=== PATIENT | female | born 1970 | race Two or more races ===

== ENCOUNTER 2018-07-26 13:14 | Outpatient (CLI) | payer MEDICAID ==
[~2018-07-26] VITALS: Ht 162.6 cm; Wt 58.5 kg
[2018-07-26 13:20] VITALS: BP 111/60
--- NOTE | 2018-07-26 18:00 | Consultation ---
DATE OF CONSULTATION: 07/25/2018 CONSULTING PHYSICIAN: Vinnie Yen M.D. REASON FOR CONSULTATION: Referral for colonoscopy. HISTORY OF PRESENT ILLNESS: This is a 48-year-old female with past medical history of colon cancer diagnosed in 2016, status post surgery, who is here for followup for colonoscopy. PAST MEDICAL HISTORY: Colon cancer. PAST SURGICAL HISTORY: Hemicolectomy. ALLERGIES: To penicillin, sulfa, Cipro, morphine. MEDICATIONS: Please see medication reconciliation list. FAMILY HISTORY: Noncontributory. SOCIAL HISTORY: No tobacco, alcohol, or IV drug abuse. PHYSICAL EXAMINATION: VITAL SIGNS: Temperature 98.1, blood pressure 111/60, pulse 70, respirations 20. HEENT: Normocephalic and atraumatic. Sclerae anicteric. NECK: Supple. No evidence of lymphadenopathy. CARDIOVASCULAR: Regular rhythm. Plus S1 and S2. No obvious murmur. LUNGS: Clear to auscultation bilaterally. ABDOMEN: Positive bowel sounds. Soft and nontender. No rebound. No guarding. No peritoneal sign. EXTREMITIES: No cyanosis, no clubbing, no edema. ASSESSMENT AND PLAN: This is a 48-year-old female with history of colon cancer, status post resection two years ago, needs a followup colonoscopy. Plan to do it when authorization is obtained. The patient was given the instruction and preparation for colonoscopy today. Vinnie Yen M.D. DR: BALDO JOB#: [id number] CC:
== END 2018-07-26 15:31 | disposition home or self-care (01) ==
LOC: PAN 13:14
DX: Z01.818 Encounter for other preprocedural examination (principal); Z90.49 Acquired absence of other specified parts of digestive tract; Z85.038 Personal history of other malignant neoplasm of large intestine; Z88.0 Allergy status to penicillin; Z88.2 Allergy status to sulfonamides; Z88.6 Allergy status to analgesic agent

== ENCOUNTER 2018-10-25 13:27 | Outpatient (CLI) | payer MEDICAID ==
--- NOTE | 2018-10-25 14:38 | General Progress Note ---
Assessment/Plan Assessment/Plan: h/o colon Cancer recent colonoscopy reviewed recommend repeat colon in2 years Subjective ROS Limited/Unobtainable: Yes Allergies: Coded Allergies: CIPROFLOXACIN (Verified Allergy, Unknown, 07/27/18) MORPHINE (Verified Allergy, Unknown, 07/27/18) PENICILLINS (Verified Allergy, Unknown, 07/27/18) SULFA (SULFONAMIDE ANTIBIOTICS) (Verified Allergy, Unknown, 07/27/18) Objective General Appearance: alert EENT: normal ENT inspection Neck: supple Cardiovascular: normal rate Respiratory/Chest: lungs clear Abdomen: normal bowel sounds, non tender, soft Extremities: non-tender Vinnie Yen MD Oct 25, 2018 14:38
== END 2018-10-25 15:27 | disposition home or self-care (01) ==
LOC: PAN 13:27
DX: C18.9 Malignant neoplasm of colon, unspecified (principal); Z85.038 Personal history of other malignant neoplasm of large intestine; Z88.0 Allergy status to penicillin; Z88.2 Allergy status to sulfonamides; Z88.6 Allergy status to analgesic agent